=== PATIENT | male | born 1945 | race Caucasian/White ===

== ENCOUNTER 2022-03-14 08:46 | Outpatient (CLI) | payer MEDICARE, BC, SELFPAY ==
--- NOTE | 2022-03-14 13:26 | W.ANESCHARGE ---
Anesthesia Charges Start Date/Time Anesthesia Start Date: 03/14/22 Anesthesia Start Time: 10:12 Stop Date/Time Anesthesia Stop Date: 03/14/22 Anesthesia Stop Time: 10:47 Summary Emergency: No Extremes of Age: Over 72-CPT 60615
--- NOTE | 2022-03-14 14:23 | W.ANESCHARGE ---
Anesthesia Charges Start Date/Time Anesthesia Start Date: 03/14/22 Anesthesia Start Time: 10:12 Stop Date/Time Anesthesia Stop Date: 03/14/22 Anesthesia Stop Time: 10:47 Summary Emergency: No Extremes of Age: Over 72-CPT 24287
== END 2022-03-14 08:47 | disposition home or self-care (01) ==
LOC: OP CLINIC 08:49
PROVIDERS: PCP Internal Medicine; Visit Provider Surgery
DX: Z12.11 Encounter for screening for malignant neoplasm of colon (principal); Z86.010 Personal history of colon polyps
CPT/HCPCS: 45378; 811; 812; 99100; J2704

== ENCOUNTER 2022-06-07 18:02 | Outpatient (CLI) | payer MEDICARE, BC, SELFPAY ==
[2022-06-07 10:27] LABS: Albumin* 4.8 g/dL (3.3-5.0); Chloride* 100 mmol/L (96-114)
[2022-06-07 10:28] LABS: Potassium* 4.9 mmol/L (3.6-5.1); Sodium* 136 mmol/L (135-149)
[2022-06-07 10:30] LABS: Alkaline Phosphatase* 98 U/L (40-150); Aspartate Amino Transferase* 30 U/L (12-35); Bilirubin Total* 0.6 mg/dL (0.1-1.5); Blood Urea Nitrogen* 24 mg/dL (7-30); Carbon Dioxide* 25 mmol/L (20-32); Cholesterol* 108 mg/dL (90-199); Creatinine* 1.3 mg/dL (0.5-1.5); Estimated Glomerular Filt Rate 58 ml/min; Glucose* 162 mg/dL (60-115); Total Protein* 7.2 g/dL (6.0-8.3); Triglycerides* 264 mg/dL (40-149)
[2022-06-07 10:31] LABS: Alanine Aminotransferase* 28 U/L (4-50); Calcium* 9.7 mg/dL (8.4-10.6); HDL Cholesterol* 37 mg/dL (>=40); LDL Cholesterol Calculated 18 mg/dL (<100)
[2022-06-07 10:57] LABS: PSA Screen* 0.68 ng/mL (0.10-4.00)
== END 2022-06-07 18:03 | disposition home or self-care (01) ==
PROVIDERS: PCP Internal Medicine; Visit Provider Internal Medicine
DX: E11.9 Type 2 diabetes mellitus without complications (principal); E78.1 Pure hyperglyceridemia; I10 Essential (primary) hypertension; Z12.5 Encounter for screening for malignant neoplasm of prostate
CPT/HCPCS: 80053; 80061; 82043; 82570; 84153

== ENCOUNTER 2022-09-28 17:28 | Emergency (ER) | payer MEDICARE, BC, SELFPAY ==
[2022-09-28 17:31] VITALS: BP 182/93; PULSE 90; RESP 18; TEMP 36.9; O2SAT 99; BMI 35.3
--- NOTE | 2022-09-28 17:38 | CRLHL7_ITS ---
For Patients: As a result of the Cures Act, medical imaging exams and procedure reports are released immediately into your electronic medical record. You may view this report before your referring provider. If you have questions, please contact your health care provider. INDICATION: Fall on ice took weight of fall on left wrist TECHNIQUE: Wrist radiograph 3 views left COMPARISON: None FINDINGS: Bone: No acute fractures or aggressive bone lesions are identified. 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 Soft tissue: Unremarkable. No radiopaque foreign bodies are seen. IMPRESSION: 1. No acute osseous injuries or abnormalities are noted. Dictated by Deven Latif MD @ 09/28/2022 6:13:40 PM Dictated by: Deven Latif MD @ 09/28/2022 18:13:45 (Electronically Signed)
--- NOTE | 2022-09-28 18:21 | ED_ITS ---
HPI - General Adult General Time Seen by Provider: 18:21 Date Seen: 09/28/22 Chief complaint: Extremity Pain/Injury, Upper Stated complaint: Fall - Left Hand Injury Time Seen by Provider: 09/28/22 17:57 Source: patient Mode of arrival: ambulatory Limitations: no limitations History of Present Illness HPI narrative: 77-year-old left-handed male presents with left wrist pain after fall. Patient slipped on the ice and landed on outstretched left hand. Denies elbow or shoulder injury, denies head injury or loss consciousness, no other injuries. Related Data Home Medications Medication Instructions Recorded Confirmed aspirin 81 mg chewable tablet 81 mg PO QDAY 05/03/22 06/14/22 Previous Rx's Medication Instructions Recorded amlodipine 10 mg tablet 10 mg PO QDAY Hypertension #90 tabs 06/30/22 atorvastatin 20 mg tablet 20 mg PO QPM Hyperlipidemia #90 06/30/22 tabs hydrochlorothiazide 25 mg tablet 25 mg PO QDAY Hypertension #90 tabs 06/30/22 lisinopril 40 mg tablet 40 mg PO QDAY Hypertension #90 tabs 06/30/22 metformin 500 mg tablet 500 mg PO BIDWMEAL Diabetes #180 06/30/22 tabs metoprolol succinate 50 mg capsule 50 mg PO QDAY Hypertension #90 ea 06/30/22 sprinkle, ext. release 24 hr nortriptyline 50 mg capsule 50 mg PO .QHS Insomnia #90 caps 06/30/22 metoprolol succinate 50 mg 50 mg PO QDAY #90 tabs 07/04/22 tablet,extended release 24 hr Allergies Allergy/AdvReac Type Severity Reaction Status Date / Time codeine Allergy Verified 09/28/22 17:37 diphenhydramine Allergy Verified 09/28/22 17:37 tramadol Allergy Verified 09/28/22 17:37 Review of Systems Status of ROS: Reports: 10 or more systems reviewed and unremarkable except as noted in History and below [facility] Medical History (Updated 09/28/22 @ 18:20 by Willy Werner MD) Encounter for screening for malignant neoplasm of prostate History of herpetic lyssa Surgical History (Updated 06/13/22 @ 10:21 by Layne Fatima) History of tonsillectomy (07/04/11) 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 No swelling, warmth, or redness Const: Vital Signs, click to edit/add: Vital Signs - 24 hr 09/28/22 17:31 Temperature 98.4 F Pulse Rate [Pulse Oximeter] 90 Respiratory Rate 18 Blood Pressure [Ri ght Upper Arm] 182/93 H Pulse Oximetry 99 Oxygen Delivery Me thod Room Air Course Course Hospital Course: Patient seen and examined, prior records are reviewed. Differential diagnosis includes but not limited to strain, sprain, dislocation. Patient presents with left wrist pain after fall. X-ray independently interpreted by me does not demonstrate any acute fracture, radiology interpretation agrees. No joint effusion, warmth, redness, or pain with passive movement to suggest crystal arthropathy or septic arthritis. Splint is placed, discussed symptom management and stable for discharge Vital Signs Vital signs: Initial Vital Signs Temperature 98.4 F 09/28/22 17:31 Temperature Source Temporal Artery Scan 09/28/22 17:31 Pulse Rate 90 09/28/22 17:31 Pulse Rhythm 09/28/22 17:31 Pulse Strength 3+ Normal 09/28/22 17:31 Respiratory Rate 18 09/28/22 17:31 Blood Pressure 182/93 H 09/28/22 17:31 Blood Pressure Mean 122 09/28/22 17:31 Blood Pressure Position Sitting 09/28/22 17:31 Pulse Oximetry 99 09/28/22 17:31 Oxygen Delivery Method 09/28/22 17:31 Vital Signs Temperature 98.4 F 09/28/22 17:31 Pulse Rate 90 09/28/22 17:31 Respiratory Rate 18 09/28/22 17:31 Blood Pressure 182/93 H 09/28/22 17:31 Pulse Oximetry 99 09/28/22 17:31 Oxygen Delivery Method 09/28/22 17:31 Temperature 98.4 F 09/28/22 17:31 Pulse Rate 90 09/28/22 17:31 Respiratory Rate 18 09/28/22 17:31 Blood Pressure 182/93 H 09/28/22 17:31 Pulse Oximetry 99 09/28/22 17:31 Oxygen Delivery Method 09/28/22 17:31 Medical Decision Making Medical Records Medical records reviewed: Yes I reviewed the patient's medical records Lab Data Lab results reviewed: Yes I reviewed the patient's lab results Discharge Plan Discharge Clinical Impression: Left wrist sprain Patient Disposition: Home, Self-Care Condition: Improved Instructions: Wrist Sprain (ED) Additional Instructions: Wear splint for comfort. Ice 15-20 minutes at a time every 2-3 hours while awake for 24 hours, then sw itch to heat if desired Activity Level: No Restrictions Discharge Diet: Regular Prescriptions: No Action aspirin 81 mg tablet,chewable 81 mg PO QDAY amlodipine 10 mg tablet 10 mg PO QDAY Qty: 90 3RF atorvastatin 20 mg tablet 20 mg PO QPM Qty: 90 3RF hydrochlorothiazide 25 mg tablet 25 mg PO QDAY Qty: 90 3RF lisinopril 40 mg tablet 40 mg PO QDAY Qty: 90 3RF metformin 500 mg tablet 500 mg PO BIDWMEAL Qty: 180 3RF metoprolol succinate 50 mg capsule,sprinkle,ER 24hr 50 mg PO QDAY Qty: 90 3RF nortriptyline 50 mg capsule 50 mg PO .QHS Qty: 90 3RF metoprolol succinate 50 mg tablet extended release 24 hr 50 mg PO QDAY Qty: 90 3RF Follow Up/Referrals: Julian Harris MD [Primary Care Provider] - Stand Alone Forms: [employer] Info Instructions
== END 2022-09-28 18:33 | disposition home or self-care (01) ==
PROVIDERS: Emergency Provider Family Medicine; PCP Internal Medicine
DX: S63.502A Unspecified sprain of left wrist, initial encounter (principal); W00.0XXA Fall on same level due to ice and snow, initial encounter
CPT/HCPCS: 29125; 73110; 99283

== ENCOUNTER 2022-12-19 09:41 | Outpatient (CLI) | payer MEDICARE, BC, SELFPAY | END 2022-12-19 09:42 | disposition home or self-care (01) | LOC: NFLDREF 12-20 00:50 | PROVIDERS: PCP Internal Medicine; Referring Provider Internal Medicine; Visit Provider Internal Medicine | DX: E11.9 Type 2 diabetes mellitus without complications (principal); E66.01 Morbid (severe) obesity due to excess calories; E78.1 Pure hyperglyceridemia; Z12.5 Encounter for screening for malignant neoplasm of prostate | CPT/HCPCS: 80053; 80061; 82043; 82570; 84153 ==

== ENCOUNTER 2023-06-28 10:50 | Outpatient (CLI) | payer MEDICARE, BC, SELFPAY | END 2023-06-28 10:51 | disposition home or self-care (01) | LOC: NFLDREF 06-29 12:40 | PROVIDERS: PCP Internal Medicine; Referring Provider Internal Medicine; Visit Provider Internal Medicine | DX: I10 Essential (primary) hypertension (principal); E78.1 Pure hyperglyceridemia; E11.9 Type 2 diabetes mellitus without complications | CPT/HCPCS: 80053; 80061 ==

== ENCOUNTER 2024-07-03 09:35 | Outpatient (CLI) | payer MEDICARE, BC, SELFPAY ==
--- OUTSIDE RECORDS SUMMARY | 2024-07-06 15:00 | XMS_ITS | Clinical Summary ---
Author Organization [employer] [facility] Address [place], [place] [address] Care Team Providers Care Logger All Round Name Role Phone Christian Maza MD Primary Care Provider Allergies Active Allergy Reactions Criticality Noted Date Comments Antihistamines Rash 01/01/2007 Codeine Rash 01/01/2007 Medications Medication Sig Dispensed Refills Start Date End Date Status LISINOPRIL-HYDROCHLOR OTHIAZIDE 20 MG-25 MG TAB take 1 tablet by oral route BID 90 0 07/21/2009 Active cyclobenzaprine (FLEXERIL) 10 mg tablet Take 1 tablet by mouth every 8 hours if needed for Muscle Spasm. 40 tablet 0 09/24/2010 Active dexamethasone (DECADRON) 2 mg tablet Take by mouth. 2 mg three times per day for one day, 2 mg twice a day for one day, then 2 mg daily for one day then stop 6 tablet 0 09/24/2010 Active oxyCODONE-acetaminoph en, 5-325 mg, (PERCOCET) 5-325 mg per tablet Take 1-2 tablets by mouth every 4 hours if needed for Pain. 50 tablet 0 09/24/2010 Active sennosides-docusate, 8.6-50 mg, (SENOKOT S) 8.6-50 mg tablet Take 1-2 tablets by mouth 2 times daily if needed for Constipation. 50 tablet 0 09/24/2010 Active Active Problems Problem Noted Date Diagnosed Date Unspecified essential hypertension 01/01/2007 Osteoarthrosis, unspecified whether generalized or localized, unspecified site 01/01/2007 Overview (01/01/2007): lt knee Benign localized hyperplasia of prostate with urinary obstruction and other lower urinary tract symptoms (LUTS)(600.21) 01/01/2007 Personal history of tobacco use, presenting hazards to health 01/01/2007 Immunizations Name Administration Dates Next Due Influenza, IIV3 (Age >=3 years) 08/29/2006 Td (Age >=7 Years) 05/16/2007,08/11/2005 Family History Medical History Relation Name Comments Alcohol/Drug Father renal failure Alcohol/Drug Maternal Grandfather Hypertension Mother congestive hear t failure Hypertension Sister Relation Name Status Comments Father Maternal Grandfather Mother Sister Social History Tobacco Use Types Packs/Day Years Used Date Smoking Tobacco: Former Cigarettes Q uit: 05/31/2006 Alcohol Use Standard Drinks/Week Comments Yes 0 (1 standard drink = 0.6 oz pur e alcohol) occasional Sex and Gender Information Value Date Recorded Sex Assigned at Not on file Gender Identity Not on file Sexual Orientation Not on file Obstetrics History Last Filed Vital Signs Vital Sign Reading Time Taken Comments Blood Pressure 109/65 09/24/2010 8:00 AM FRONT OFFICE CLERK Pulse 87 09/24/2010 8:00 AM FRONT OFFICE CLERK Temperature 36.9 ??C (98.5 ??F) 09/24/2010 8:00 AM CS T Respiratory Rate 16 09/24/2010 8:00 AM FRONT OFFICE CLERK Oxygen Saturation 98% 09/24/2010 8:00 AM FRONT OFFICE CLERK Inhaled Oxygen Concentration - - Weight 120.7 kg (266 lb 1.5 oz) 09/23/2010 1:00 PM FRONT OFFICE CLERK Height 177 cm (5' 9.69) 09/23/2010 1:00 PM FRONT OFFICE CLERK Body Mass Index 38.53 09/23/2010 1:00 PM FRONT OFFICE CLERK Plan of Treatment Health Maintenance Due Date Last Done Comments Tdap 1958 Depression screening for age 12+ 1959 BMI (ht and wt on same day) for age 18+ 1965 Hepatitis C screening for age 18-79 1965 Zoster (shingles) series for age 50+ (1 of 2) 1997 Pneumococcal series for age 65+ (1 of 1 - PCV) 2012 Tetanus booster 05/16/2017 05/16/2007, 08/11/2005 RSV vaccine for adults or pr egnancy (1 - 1-dose 75+ series) 2022 COVID-19 vaccine series ( season) 2024 Influenza for age 65+ 05/18/2024 08/29/2006 Advance Directives * Full Code (Latest Code Status on File) Date Activated Date Inactivated Comments 09/23/2010 6:36 PM 09/24/2010 5:41 PM * Full Code Date Activated Date Inactivated Comments 09/23/2010 12:22 PM 09/23/2010 6:36 PM Care Teams Logger All Round Relationship Specialty Start Date End Date Christian Maza MD PCP - General Family Practice 09/22/10
== END 2024-07-03 09:36 | disposition home or self-care (01) ==
LOC: NFLDREF 07-06 14:58
PROVIDERS: PCP Internal Medicine; Referring Provider Internal Medicine; Visit Provider Internal Medicine
DX: N40.0 Benign prostatic hyperplasia without lower urinary tract symptoms (principal); E11.9 Type 2 diabetes mellitus without complications; I10 Essential (primary) hypertension; E78.1 Pure hyperglyceridemia; E78.5 Hyperlipidemia, unspecified; Z12.5 Encounter for screening for malignant neoplasm of prostate
CPT/HCPCS: 80053; 80061; G0103

== ENCOUNTER 2025-01-06 12:56 | Outpatient (CLI) | payer MEDICARE, BC, SELFPAY | END 2025-01-06 12:57 | disposition home or self-care (01) | LOC: NFLDREF 01-07 03:27 | PROVIDERS: PCP Internal Medicine; Referring Provider Internal Medicine; Visit Provider Internal Medicine | DX: E11.65 Type 2 diabetes mellitus with hyperglycemia (principal); Z79.84 Long term (current) use of oral hypoglycemic drugs | CPT/HCPCS: 82043; 82570 ==

== ENCOUNTER 2025-06-25 10:06 | Emergency (ER) | payer MEDICARE, BC, SELFPAY ==
[2025-06-25 10:11] VITALS: BP 177/76; PULSE 96; RESP 20; TEMP 37; O2SAT 96; BMI 33.9
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
--- NOTE | 2025-06-25 10:46 | CRLHL7_ITS ---
For Patients: As a result of the Century Cures Act, medical imaging exams and procedure reports are released immediately into your electronic medical record. You may view this report before your referring provider. If you have questions, please contact your health care provider. Indication: Swollen. Sore. Discomfort. Technique: Three views of the right thumb were acquired Comparison: None Findings: As described below Impression: 1. Diffuse soft tissue swelling. No gas within soft tissues. No radiopaque foreign body. Nonspecific finding. 2. Severe osteoarthritis at the 1st carpometacarpal joint. Lesser degrees of osteoarthritis at the 1st MCP and the interphalangeal joint of the thumb 3. Deformity of the 1st metacarpal probably related to prior fracture or fractures. This does not appear to be acute. 4. No acute fracture, dislocation or destructive process. Dictated by Enrico Chaudhary MD @ 06/25/2025 11:24:39 AM (Electronically Signed)
== END 2025-06-25 12:25 | disposition home or self-care (01) ==
PROVIDERS: Emergency Provider Family Medicine; PCP Internal Medicine
DX: M79.644 Pain in right finger(s) (principal)
CPT/HCPCS: 29130; 73140; 99283; 99284

== ENCOUNTER 2025-06-30 08:30 | Outpatient (CLI) | payer MEDICARE, BC, SELFPAY | END 2025-06-30 08:31 | disposition home or self-care (01) | LOC: NFLDREF 07-02 14:42 | PROVIDERS: PCP Internal Medicine; Referring Provider Internal Medicine; Visit Provider Internal Medicine | DX: E11.9 Type 2 diabetes mellitus without complications (principal); N40.0 Benign prostatic hyperplasia without lower urinary tract symptoms; Z12.5 Encounter for screening for malignant neoplasm of prostate | CPT/HCPCS: 80053; 80061; G0103 ==